=== PATIENT | female | born 1990 | race African-American/Black ===

== ENCOUNTER 2019-07-04 16:59 | Emergency (ER) | payer MEDICAID ==
[~2019-07-04] VITALS: Ht 154.9 cm; Wt 50.0 kg
[2019-07-04 18:50] VITALS: BP 118/78
== END 2019-07-04 18:50 | disposition home or self-care (01) ==
LOC: ER 16:59
DX: J02.9 Acute pharyngitis, unspecified (principal); K21.0 Gastro-esophageal reflux disease with esophagitis; I10 Essential (primary) hypertension
CPT/HCPCS: 87070; 87430; 99283